=== PATIENT | female | born 1935 | race Caucasian/White ===

== ENCOUNTER → 2016-12-07 | Outpatient (REF) | payer MEDICARE ==
[~2016-12-07] MED LIST: CENTTAB PO; CITRTAB15 PO; OCUVTAB PO; OSTETAB3 PO; TIMO25OPD OD; TYLE650T30 PO; VITA500C14 PO
[2016-12-07 16:03] LABS: MEAN CORPUSCULAR HEMOGLOBIN 32.4 pg (27.0-33.0); MEAN CORPUSCULAR HGB CONC 32.9 g/dl (32.0-36.5); MEAN CORPUSCULAR VOLUME 98.7 fl (80.0-96.0); RED CELL DISTRIBUTION WIDTH 13.5 % (11.5-14.5); WHITE BLOOD COUNT 4.7 K/mm3 (4.0-10.0)
[2016-12-07 16:08] LABS: ALBUMIN 3.5 GM/DL (3.2-5.2); ALBUMIN/GLOBULIN RATIO 1.09 (1.00-1.93); ALKALINE PHOSPHATASE 67 U/L (45-117); ALT/SGPT 18 U/L (12-78); ANION GAP 6 MEQ/L (8-16); AST/SGOT 22 U/L (15-37); BILIRUBIN,TOTAL 0.5 MG/DL (0.2-1.0); BLOOD UREA NITROGEN 29 MG/DL (7-18); CALCIUM LEVEL 8.8 MG/DL (8.8-10.2); CARBON DIOXIDE LEVEL 30 MEQ/L (21-32); CHLORIDE LEVEL 105 MEQ/L (98-107); CHOLESTEROL LEVEL 199 MG/DL (<200); GLOMERULAR FILTRATION RATE > 60.0 (>32); GLUCOSE, FASTING 78 MG/DL (83-110); POTASSIUM SERUM 4.6 MEQ/L (3.5-5.1); SODIUM LEVEL 141 MEQ/L (136-145); TOTAL PROTEIN 6.7 GM/DL (6.4-8.2); TRIGLYCERIDES LEVEL 124 MG/DL (<150)
[2016-12-10 00:06] LABS: Lyme Disease IgG/IgM Antibodie <0.91 ISR (0.00-0.90); Lyme Disease IgM Ab Quantitati <0.80 index (0.00-0.79)
== END ==
LOC: M SFHCPLAZ 12:50
PROVIDERS: ATTEND Internal Medicine
DX: M17.0 Bilateral primary osteoarthritis of knee (principal); E78.5 Hyperlipidemia, unspecified; Z85.038 Personal history of other malignant neoplasm of large intestine
CPT/HCPCS: 36415; 80053; 80061; 85027; 85652; 86140; 86617; G0463

== ENCOUNTER → 2017-06-08 | Outpatient (CLI) | payer MEDICARE ==
--- NOTE | 2017-06-08 11:20 | REP ---
MR CERVICAL SPINE WITHOUT CONTRAST: HISTORY: Neck pain. Bilateral facet hypertrophy is present at the C3-4 level. This produces minimal narrowing of the C3 neural foramina. A disc bulge is present at the C4-5 level. There is minimal effacement of the thecal sac without spinal cord compression. The C4 neural foramina are patent. A disc bulge is present at the C5-6 level. There is mild effacement of the thecal sac without spinal cord compression. Bilateral uncinate process hypertrophy is present. This produces minimal narrowing of the C5 neural foramina. A disc bulge and small right paracentral disc protrusion with associated osteophyte formation are present at the C6-7 level. There is minimal deformity of the spinal cord. Bilateral uncinate process and facet hypertrophy are present. These findings produce mild and minimal narrowing of the right and left C6 neural foramina, respectively. There is no other disc bulge or herniation. The remaining neural foramina are patent. The spinal cord is normal in signal intensity. The C5-6 intervertebral disc is decreased in height consistent with disc degeneration. Normal signal intensity is present in the cervical vertebral bodies. IMPRESSION: There is cervical spondylosis at the C3-4 through C6-7 levels, most significant at the C6-7 level where there is minimal deformity of the spinal cord. Signed by Ulises Reina MD 06/08/2017 11:23 A
== END ==
LOC: M RAD 09:37
PROVIDERS: ATTEND Internal Medicine
DX: M47.892 Other spondylosis, cervical region (principal)

== ENCOUNTER → 2018-04-23 | Outpatient (CLI) | payer MEDICARE | LOC: M RAD 08:05 | DX: M54.5 Low back pain (principal); R93.7 Abnormal findings on diagnostic imaging of other parts of musculoskeletal system | CPT/HCPCS: 72148 ==

== ENCOUNTER 2018-06-19 11:33 | Day surgery (SDC) | payer MEDICARE ==
[~2018-06-19 11:33] MED LIST changes: -CENTTAB PO; -CITRTAB15 PO; +LIDOCAINE 2% INJ 100 MG/5 ML SDV (FOR ANES.) As Ordered; -OCUVTAB PO; -OSTETAB3 PO; +PROPOFOL 200 MG/20 ML VIAL As Ordered; -TIMO25OPD OD; -TYLE650T30 PO; -VITA500C14 PO
[2018-06-19] MEDS: NS 1,000 ML IV (12:10)
[2018-06-19] MEDS ORDERED: GLYCOPYRROLATE INJ 0.2 MG/ML 2 ML VIAL As Ordered (13:09)
[2018-06-19] MEDS ORDERED: ONDANSETRON 4MG/2ML VIAL (J2405) As Ordered (13:12)
== END 2018-06-19 14:01 | disposition home or self-care (01) ==
LOC: M OPP 11:33
DX: Z85.038 Personal history of other malignant neoplasm of large intestine (principal); K57.30 Diverticulosis of large intestine without perforation or abscess without bleeding; Z98.0 Intestinal bypass and anastomosis status
CPT/HCPCS: G0105

== ENCOUNTER → 2018-06-29 | Outpatient (CLI) | payer MEDICARE | LOC: M PAIN 11:30 | DX: Z53.29 Procedure and treatment not carried out because of patient's decision for other reasons (principal) ==

== ENCOUNTER → 2021-12-02 | Outpatient (REF) | payer MEDICARE ==
[~2021-12-02] MED LIST changes: +ACET650T61 PO; +BIOT10008 PO; +CENTTAB PO; +CHONDROITIN PO; +CITRTAB15 PO; +FISH120016 PO; -LIDOCAINE 2% INJ 100 MG/5 ML SDV (FOR ANES.) As Ordered; +MAGN250T9 PO; +OCUVTAB PO; +OSTETAB3 PO; +PROBCAP4 PO; -PROPOFOL 200 MG/20 ML VIAL As Ordered; +TIMO0.2525 OD; +TYLE650T30 PO; +VITA100067 PO; +VITA500C14 PO; +VITA500T17 PO; +XARE20TA PO; +[UNRECOGNIZED DRUG - OTHER]
== END ==
LOC: M LAB REF 13:49
PROVIDERS: ATTEND Physician Assistant
DX: D21.12 Benign neoplasm of connective and other soft tissue of left upper limb, including shoulder (principal)
CPT/HCPCS: 11102; 17000; 17003; 88305; G0463

== ENCOUNTER → 2022-09-07 | Outpatient (CLI) | payer MEDICARE ==
[2022-09-07 18:06] LABS: CALCIUM LEVEL 9.3 MG/DL (8.3-10.6); CREATININE FOR GFR 0.94 MG/DL (0.55-1.30); GLOMERULAR FILTRATION RATE 59.8 (>32); POTASSIUM SERUM 4.2 MMOL/L (3.5-5.1)
[2022-09-07 18:33] LABS: CREATININE, URINE 44.3 MG/DL; MAU/CREAT RATIO 15.8 MCG/MG (0.0-30.0)
[2022-09-07 18:38] LABS: APPEARANCE, URINE MANUAL CLEAR (CLEAR); BILIRUBIN, URINE MANUAL NEGATIVE (NEGATIVE); COLOR, URINE MANUAL YELLOW (YELLOW); GLUCOSE, URINE (UA) MANUAL NEGATIVE (NEGATIVE); KETONE, URINE MANUAL NEGATIVE (NEGATIVE); NITRITE, URINE MANUAL NEGATIVE (NEGATIVE); PROTEIN, URINE MANUAL NEGATIVE (NEGATIVE); UROBILINOGEN, URINE MANUAL NORMAL (NORMAL)
[2022-09-07 18:39] LABS: BLOOD URINE MANUAL NEGATIVE (NEGATIVE)
[2022-09-07 18:40] LABS: LEUKOCYTE ESTERASE, URINE MAN TRACE (NEGATIVE)
[2022-09-07 19:15] LABS: SQUAMOUS EPITHELIAL CELL URINE SMALL AMOUNT /hpf (SMALL AMT); TRANSITIONAL EPI CELLS, URINE SMALL AMOUNT /hpf
[2022-09-07 19:16] LABS: BACTERIA, URINE SMALL AMOUNT; HYALINE CAST, URINE NONE SEEN /lpf (0-1); RBC, URINE 0-1 /hpf (0-3)
== END ==
LOC: M PLALAB 14:34
PROVIDERS: ATTEND Internal Medicine Hematology
DX: N18.32 Chronic kidney disease, stage 3b (principal)

== ENCOUNTER → 2023-03-01 | Outpatient (REF) | payer MEDICARE ==
[~2023-03-01] MED LIST changes: +AMLO2.5T3 PO; +BIOT1000 PO; +CHLO125TA PO; +ELIQ2.5T PO; +PROBCAP14 PO; +THERTAB52 PO; +VITA100093 PO
[2023-03-01 11:27] LABS: CREATININE, URINE 98.2 MG/DL; MAU/CREAT RATIO 37.6 MCG/MG (0.0-30.0)
== END ==
LOC: M SFHCPLAZ 09:55
PROVIDERS: ATTEND Internal Medicine Hematology
DX: E78.5 Hyperlipidemia, unspecified (principal)

== ENCOUNTER 2023-03-16 07:47 | Day surgery (SDC) | payer MEDICARE ==
[~2023-03-16] VITALS: Ht 165.1 cm; Wt 67.3 kg
[~2023-03-16 07:47] MED LIST changes: +NS 1,000 ML IV ONE
[2023-03-16] MEDS ORDERED: propofoL 200 MG/20 ML VIAL As Ordered ONE (09:46)
[2023-03-16] MEDS ORDERED: LIDOCAINE 2% MDV 20ML VIAL As Ordered ONE (09:47)
[2023-03-16] MEDS ORDERED: fentaNYL 100 MCG/2 ML INJECTION As Ordered ONE (09:47)
[2023-03-16 09:54] VITALS: TEMP 98.3
[2023-03-16 10:08] VITALS: BP 125/58; O2SAT 98
== END 2023-03-16 10:08 | disposition home or self-care (01) ==
LOC: M OPP 07:47
PROVIDERS: ATTEND Surgery
DX: Z12.11 Encounter for screening for malignant neoplasm of colon (principal); Z85.038 Personal history of other malignant neoplasm of large intestine; Z80.0 Family history of malignant neoplasm of digestive organs; K57.30 Diverticulosis of large intestine without perforation or abscess without bleeding; Z79.01 Long term (current) use of anticoagulants; Z79.1 Long term (current) use of non-steroidal anti-inflammatories (NSAID); Z79.899 Other long term (current) drug therapy
CPT/HCPCS: G0105; J3010

== ENCOUNTER → 2023-07-11 | Outpatient (CLI) | payer MEDICARE ==
[~2023-07-11] MED LIST changes: -NS 1,000 ML IV ONE
== END ==
LOC: M WHC 09:25
PROVIDERS: ATTEND Internal Medicine Hematology
DX: M85.88 Other specified disorders of bone density and structure, other site (principal)

== ENCOUNTER → 2023-11-30 | Outpatient (CLI) | payer MEDICARE ==
[2023-11-30 16:08] LABS: APPEARANCE, URINE CLEAR (CLEAR); BACTERIA, URINE AUTO 1+ (NEGATIVE); BILIRUBIN, URINE AUTO NEGATIVE (NEGATIVE); BLOOD, URINE BLOOD NEGATIVE (NEGATIVE); COLOR, URINE YELLOW (YELLOW); GLUCOSE, URINE (UA) AUTO NEGATIVE (NEGATIVE); KETONE, URINE AUTO NEGATIVE (NEGATIVE); LEUKOCYTE ESTERASE, URINE AUTO 2+ (NEGATIVE); NITRITE, URINE AUTO NEGATIVE (NEGATIVE); PROTEIN, URINE AUTO NEGATIVE (NEGATIVE); RBC, URINE AUTO 1 /HPF (0-3); SPECIFIC GRAVITY URINE AUTO 1.021 (1.002-1.035); SQUAMOUS EPITHELIAL CELL UR AU 0 /HPF (0-6); UROBILINOGEN, URINE AUTO 0.2 mg/dL (0.0-2.0); WBC, URINE AUTO 10 /HPF (0-3)
== END ==
LOC: M PLALAB 11:40
PROVIDERS: ATTEND Internal Medicine Hematology
DX: R79.82 Elevated C-reactive protein (CRP) (principal); Z79.899 Other long term (current) drug therapy

== ENCOUNTER → 2024-01-18 | Outpatient (REF) | payer MEDICARE | LOC: M SFHCDERM 17:24 | PROVIDERS: ATTEND Physician Assistant | DX: C44.529 Squamous cell carcinoma of skin of other part of trunk (principal) ==

== ENCOUNTER → 2024-03-08 | Outpatient (REF) | payer MEDICARE, OTHER | LOC: M LAB REF 15:21 | PROVIDERS: ATTEND Surgery | DX: L57.8 Other skin changes due to chronic exposure to nonionizing radiation (principal) ==